=== PATIENT | female | born 1965 | race Asian ===

== ENCOUNTER 2017-08-01 06:19 | Day surgery (SDC) | payer BC ==
[~2017-08-01 06:19] MED LIST: AMPICILLIN500 MG PO; CIPRO500 MG PO; DIFLUCAN100 MG PO; DIFLUCAN150 MG OR; DIFLUCAN150 MG PO; FLAGYL500 MG OR; KENALOG15 GM/TUBE EX; LORTAB 5/3255 MG PO; Levaquin PO; NYSTATIN100000 M1 PO; ZPAK PO
[2017-08-01 08:18] VITALS: BP 112/74
== END 2017-08-01 08:26 | disposition home or self-care (01) | DRG 951 ==
LOC: ENDO 06:19
PROVIDERS: ATTEND Surgery
PROC: 0DJD8ZZ Inspection of Lower Intestinal Tract, Via Natural or Artificial Opening Endoscopic (ICD-10-PCS; principal; 2017-08-01)
DX: Z12.11 Encounter for screening for malignant neoplasm of colon (principal)